=== PATIENT | female | born 1955 | race Hispanic/Latino ===

== ENCOUNTER 2019-05-06 23:48 | Emergency (ER) | payer OTHER ==
[2019-05-07] MEDS ORDERED: ONDANSETRON HCL 4 MG/2 ML VIAL ONE (00:53)
[2019-05-07] MEDS ORDERED: METOCLOPRAMIDE 10 MG/2 ML VIAL ONE (00:53)
[2019-05-07] MEDS ORDERED: FAMOTIDINE/PF 20 MG/2 ML VIAL IV ONE (00:54)
[2019-05-07 01:06] LABS: BASOPHILS % (AUTO) 0.4 % (0.0-5.0); EOSINOPHILS % (AUTO) 3.1 % (0.0-8.0); HEMATOCRIT 42.9 % (36-48); LYMPHOCYTES % (AUTO) 32.3 % (21.0-51.0); MEAN CORPUSCULAR HEMOGLOBIN 29.6 pg (27.0-33.0); MEAN CORPUSCULAR HGB CONC 32.9 g/dL (32.0-36.0); MEAN CORPUSCULAR VOLUME 89.9 fL (79-99); MONOCYTES % (AUTO) 9.3 % (3.0-13.0); NEUTROPHILS % (AUTO) 54.7 % (40.0-77.0); PLATELET COUNT (AUTO) 226 K/uL (130-400); RED BLOOD CELL COUNT(AUTO) 4.77 MIL/uL (4.00-5.50); RED CELL DISTRIBUTION WIDTH 12.6 % (11.0-15.5); WHITE BLOOD COUNT (AUTO) 8.5 K/uL (4.8-10.8)
[2019-05-07 01:08] LABS: APPEARANCE,URINE Clear (CLEAR); BILIRUBIN,URINE Negative (NEGATIVE); COLOR,URINE Yellow (YELLOW); GLUCOSE, URINE (UA) Negative (NEGATIVE); KETONES,URINE Negative (NEGATIVE); LEUKOCYTE ESTERASE ,URINE Trace (NEGATIVE); NITRATE,URINE Negative (NEGATIVE); OCCULT BLOOD,URINE Negative (NEGATIVE); PROTEIN,URINE Negative (NEGATIVE)
[2019-05-07 01:16] LABS: CARBON DIOXIDE 26 mmol/L (21-32); CHLORIDE 103 mmol/L (101-111); CREATININE 0.8 mg/dL (0.5-1.5); GLUCOSE,RANDOM 110 mg/dL (70-105); INR 0.9 (0.85-1.15); PARTIAL THROMBOPLASTIN TIME 29.6 SEC (26.3-35.5); PROTHROMBIN TIME 9.8 SEC (9.6-11.6); SODIUM SERUM 136 mmol/L (136-145); UREA NITROGEN, BLOOD 21 mg/dL (7-18)
[2019-05-07 01:17] LABS: BACTERIA,URINE Rare /HPF (None Seen); RBC,URINE 0-1 /HPF (0-1); WBC,URINE 0-1 /HPF (0-1)
[2019-05-07 01:18] LABS: SQUAMOUS EPITHELIAL CELL,UR 0-2 /HPF (0-2)
[2019-05-07 01:21] LABS: ALANINE AMINOTRANSFERASE 31 U/L (12-78); ALBUMIN 3.7 g/dL (3.5-5.0); ASPARTATE AMINOTRANSFERASE 29 U/L (10-37); BILIRUBIN,TOTAL 0.3 mg/dL (0.2-1.0); CREATINE KINASE, TOTAL 75 U/L (21-232); LIPASE 102 U/L (114-286); TOTAL PROTEIN, SERUM 7.9 g/dL (6.0-8.3)
== END 2019-05-07 02:23 | disposition home or self-care (01) ==
LOC: EDH 23:48
DX: K29.70 Gastritis, unspecified, without bleeding (principal); I10 Essential (primary) hypertension; Z90.49 Acquired absence of other specified parts of digestive tract; Z98.890 Other specified postprocedural states
CPT/HCPCS: 36415; 80053; 81001; 82550; 83690; 84484; 85025; 85610; 85730; 93005; 96361; 96374; 96375; 99284; J2405; J2765; J3490

== ENCOUNTER 2020-03-25 01:47 | Inpatient (IN) | payer OTHER, SELFPAY ==
[~2020-03-25] VITALS: Ht 162.6 cm; Wt 68.5 kg
[2020-03-25] MEDS ORDERED: ONDANSETRON HCL 4 MG/2 ML VIAL ONE (03:04)
[2020-03-25] MEDS ORDERED: HYDROMORPHONE HCL 0.5 MG/0.5 ML ML ONE (03:04)
[2020-03-25] MEDS ORDERED: SODIUM CHLORIDE 0.9% 1000ML 1,000 ML IV ONE ×2 (03:06→18:24)
[2020-03-25 03:30] LABS: APPEARANCE,URINE Clear (CLEAR); BILIRUBIN,URINE Negative (NEGATIVE); COLOR,URINE Yellow (YELLOW); GLUCOSE, URINE (UA) Negative (NEGATIVE); KETONES,URINE Trace mg/dL (NEGATIVE); LEUKOCYTE ESTERASE ,URINE Small (NEGATIVE); NITRATE,URINE Negative (NEGATIVE); OCCULT BLOOD,URINE Negative (NEGATIVE); PH,URINE 5.5 (5.0-8.0); PROTEIN,URINE Negative (NEGATIVE); UROBILINOGEN,URINE 0.2 mg/dL (0.2-1.0)
[2020-03-25 03:34] LABS: BASOPHILS % (AUTO) 0.5 % (0.0-5.0); EOSINOPHILS % (AUTO) 0.9 % (0.0-8.0); HEMATOCRIT 42.4 % (36-48); LYMPHOCYTES % (AUTO) 26.8 % (21.0-51.0); MEAN CORPUSCULAR HGB CONC 33.5 g/dL (32.0-36.0); MEAN CORPUSCULAR VOLUME 89.6 fL (79-99); MONOCYTES % (AUTO) 13.5 % (3.0-13.0); NEUTROPHILS % (AUTO) 58.1 % (40.0-77.0); PLATELET COUNT (AUTO) 256 K/uL (130-400); RED BLOOD CELL COUNT(AUTO) 4.73 MIL/uL (4.00-5.50); RED CELL DISTRIBUTION WIDTH 12.4 % (11.0-15.5); WHITE BLOOD COUNT (AUTO) 8.5 K/uL (4.8-10.8)
[2020-03-25 03:40] LABS: CREATININE 0.8 mg/dL (0.5-1.5); POTASSIUM 3.5 mmol/L (3.5-5.1)
[2020-03-25 03:43] LABS: BACTERIA,URINE None Seen /HPF (None Seen); RBC,URINE None Seen /HPF (0-1); SQUAMOUS EPITHELIAL CELL,UR Few /HPF (0-2); WBC,URINE 0-1 /HPF (0-1)
[2020-03-25 03:45] LABS: ALBUMIN 3.7 g/dL (3.5-5.0); BILIRUBIN,TOTAL 0.2 mg/dL (0.2-1.0); TOTAL PROTEIN, SERUM 7.3 g/dL (6.0-8.3)
[2020-03-25] MEDS ORDERED: PANTOPRAZOLE 40 MG/VIAL ONE (08:51)
[2020-03-25] MEDS ORDERED: IOHEXOL-350 75 ML VIAL IV ONE (10:37)
[2020-03-25] MEDS ORDERED: MORPHINE SULFATE 2 MG/ML 1ML SYG ONE (11:22)
[2020-03-25] MEDS ORDERED: METHYLPREDNISOLONE SOD SUCC 125MG/2ML VIAL ONE (11:22)
[2020-03-25] MEDS ORDERED: EPINEPHRINE 1 MG/ML AMPULE ONE (11:22)
[2020-03-25] MEDS ORDERED: DiphenhydrAMINE HCL 50 MG/ML VIAL ONE (11:32)
[2020-03-25] MEDS ORDERED: FAMOTIDINE/PF 20 MG/2 ML VIAL IV ONE (11:33)
[2020-03-25] MEDS ORDERED: ACETAMINOPHEN 325 MG TAB PO PRN ×2 (13:30)
[2020-03-25] MEDS ORDERED: ONDANSETRON HCL 4 MG/2 ML VIAL IV PRN (13:30)
[2020-03-25] MEDS: SODIUM CHLORIDE 0.9% 1000ML 1,000 ML IV SCH (18:00)
[2020-03-25] MEDS ORDERED: DiphenhydrAMINE HCL 50 MG/ML VIAL IV PRN (18:00)
[2020-03-25 19:12] LABS: HEMATOCRIT 39.6 % (36-48)
[2020-03-25] MEDS: METHYLPREDNISOLONE SOD SUCC 40MG/ML 1ML IVP SCH (21:00)
[2020-03-25] MEDS ORDERED: METHYLPREDNISOLONE SOD SUCC 40MG/ML 1ML ONE (21:17)
[2020-03-26] VITALS (7 sets, daily range): BP systolic 118–143; BP diastolic 66–79
[2020-03-26 00:36] LABS: HEMATOCRIT 41.5 % (36-48)
[2020-03-26] MEDS: METHYLPREDNISOLONE SOD SUCC 40MG/ML 1ML IVP SCH ×2 (10:15→21:08)
[2020-03-26] MEDS: PANTOPRAZOLE 40 MG/VIAL IVP SCH (10:15)
[2020-03-26 12:01] LABS: HEMATOCRIT 40.1 % (36-48)
[2020-03-26] MEDS: SODIUM CHLORIDE 0.9% 1000ML 1,000 ML IV SCH (18:30)
[2020-03-27 03:10] VITALS: BP 134/69
[2020-03-27 08:00] VITALS: BP 151/76
[2020-03-27] MEDS: PANTOPRAZOLE 40 MG/VIAL IVP SCH (09:59)
[2020-03-27] MEDS: SODIUM CHLORIDE 0.9% 1000ML 1,000 ML IV SCH ×2 (10:00→10:25)
[2020-03-27] MEDS ORDERED: PANT40TA55 PO (10:22)
[2020-03-27] MEDS ORDERED: METH4TAB3 PO (10:44)
[2020-03-27 12:26] VITALS: BP 155/66
[2020-03-27] MEDS ORDERED: FAMO20TA8 PO (14:15)
== END 2020-03-27 14:40 | disposition home or self-care (01) | DRG 378 ==
LOC: EDH 01:47 → EDHIP 01:48 → 3BH 03-26 00:06
PROVIDERS: ADMIT Family Medicine; ATTEND Family Medicine
DX: K92.2 Gastrointestinal hemorrhage, unspecified (principal); T88.6XXA Anaphylactic reaction due to adverse effect of correct drug or medicament properly administered, initial encounter; T50.8X5A Adverse effect of diagnostic agents, initial encounter; I10 Essential (primary) hypertension; Z90.49 Acquired absence of other specified parts of digestive tract
CPT/HCPCS: 36415; 74177; 80053; 81001; 82270; 83690; 84484; 85014; 85018; 85025; 93005; 97039; C9113; G0378; J0171; J1170; J1200; J2405; J2920; J2930; J3490; J7030; Q9967

== ENCOUNTER → 2022-06-23 | Outpatient (CLI) | payer OTHER ==
[~2022-06-23] MED LIST: METH4TAB3 PO; PANT40TA55 PO; REGADENOSON 0.4 MG/5 ML PF SYG IVP ONE
== END | disposition home or self-care (01) ==
LOC: SHCH 07:42
PROVIDERS: ATTEND Internal Medicine Cardiovascular Disease
DX: Z01.810 Encounter for preprocedural cardiovascular examination (principal); M25.561 Pain in right knee; M06.9 Rheumatoid arthritis, unspecified; I10 Essential (primary) hypertension; E11.9 Type 2 diabetes mellitus without complications; Z79.84 Long term (current) use of oral hypoglycemic drugs; Z79.899 Other long term (current) drug therapy
CPT/HCPCS: 78452; 96374; 93017; J2785; A9500 ×2

== ENCOUNTER → 2024-04-10 | Outpatient (CLI) | payer OTHER ==
[~2024-04-10] MED LIST changes: +AEC81 PO; +ATOR40TA69 PO; +CARV6.2579 PO; +DICL50TA7 PO; +LOSA-418 PO; +METF-444 PO; -REGADENOSON 0.4 MG/5 ML PF SYG IVP ONE
[2024-04-10 08:38] LABS: BASOPHILS # (AUTO) 0.06 K/uL (0.00-0.20); BASOPHILS % (AUTO) 0.5 % (0.0-5.0); EOSINOPHILS # (AUTO) 0.14 K/uL (0.00-0.70); EOSINOPHILS % (AUTO) 1.1 % (0.0-8.0); HEMATOCRIT 44.4 % (36-48); IMMATURE GRANULOCYTE ABSOLUTE 0.24 K/uL (0-1); LYMPHOCYTES # (AUTO) 3.3 K/uL (1.0-4.8); LYMPHOCYTES % (AUTO) 26.1 % (21.0-51.0); MEAN CORPUSCULAR HEMOGLOBIN 30.6 pg (27.0-33.0); MEAN CORPUSCULAR HGB CONC 31.8 g/dL (32.0-36.0); MEAN CORPUSCULAR VOLUME 96.3 fL (79-99); MONOCYTES % (AUTO) 7.8 % (3.0-13.0); NEUTROPHILS # (AUTO) 7.8 K/uL (1.8-7.7); NEUTROPHILS % (AUTO) 62.6 % (40.0-77.0); PLATELET COUNT (AUTO) 278 K/uL (130-400); RED BLOOD CELL COUNT(AUTO) 4.61 MIL/uL (4.00-5.50); RED CELL DISTRIBUTION WIDTH 14.3 % (11.0-15.5); WHITE BLOOD COUNT (AUTO) 12.4 K/uL (4.8-10.8)
[2024-04-10 08:50] LABS: CREATININE 0.7 mg/dL (0.5-1.0); POTASSIUM 4.3 mmol/L (3.5-5.1)
[2024-04-10 08:54] LABS: INR <= 0.93 (0.85-1.15); PROTHROMBIN TIME 9.7 SEC (9.6-11.6)
[2024-04-10 08:55] LABS: PARTIAL THROMBOPLASTIN TIME 27.6 SEC (26.3-35.5)
--- NOTE | 2024-04-10 16:37 | HMCIMG ---
CHEST 2VWS HISTORY: Preop COMPARISON: 09/10/2023 FINDINGS: Frontal and lateral projections of the chest were obtained. There is no acute pulmonary infiltrates or failure. The heart is not enlarged. Prominent interstitial markings are seen. Degenerative changes are seen of the thoracolumbar spine. IMPRESSION: 1. No acute pulmonary infiltrates.
== END | disposition home or self-care (01) ==
LOC: RAH 04-09 16:15
PROVIDERS: ATTEND Internal Medicine Cardiovascular Disease
DX: Z01.818 Encounter for other preprocedural examination (principal); M47.815 Spondylosis without myelopathy or radiculopathy, thoracolumbar region; Z79.01 Long term (current) use of anticoagulants
CPT/HCPCS: 36415; 71046; 80048; 85025; 85610; 85730

== ENCOUNTER → 2024-05-13 | Outpatient (CLI) | payer OTHER ==
[2024-05-13 11:25] LABS: BASOPHILS # (AUTO) 0.03 K/uL (0.00-0.20); BASOPHILS % (AUTO) 0.3 % (0.0-5.0); EOSINOPHILS # (AUTO) 0.11 K/uL (0.00-0.70); EOSINOPHILS % (AUTO) 1.1 % (0.0-8.0); HEMATOCRIT 40.3 % (36-48); IMMATURE GRANULOCYTE ABSOLUTE 0.08 K/uL (0-1); LYMPHOCYTES # (AUTO) 2.4 K/uL (1.0-4.8); LYMPHOCYTES % (AUTO) 23.1 % (21.0-51.0); MEAN CORPUSCULAR HGB CONC 32.3 g/dL (32.0-36.0); MEAN CORPUSCULAR VOLUME 96.2 fL (79-99); MONOCYTES # (AUTO) 0.9 K/uL (0.1-1.0); MONOCYTES % (AUTO) 8.2 % (3.0-13.0); NEUTROPHILS # (AUTO) 6.9 K/uL (1.8-7.7); NEUTROPHILS % (AUTO) 66.5 % (40.0-77.0); PLATELET COUNT (AUTO) 243 K/uL (130-400); RED BLOOD CELL COUNT(AUTO) 4.19 MIL/uL (4.00-5.50); RED CELL DISTRIBUTION WIDTH 13.8 % (11.0-15.5); WHITE BLOOD COUNT (AUTO) 10.4 K/uL (4.8-10.8)
[2024-05-13 11:38] LABS: ALBUMIN 3.5 g/dL (3.5-5.0); BILIRUBIN,TOTAL 0.3 mg/dL (0.2-1.0); CREATININE 0.6 mg/dL (0.5-1.0); POTASSIUM 3.9 mmol/L (3.5-5.1); TOTAL PROTEIN, SERUM 7.4 g/dL (6.0-8.3)
== END | disposition home or self-care (01) ==
LOC: LAB 10:29
PROVIDERS: ATTEND Nurse Practitioner Acute Care
DX: Z01.812 Encounter for preprocedural laboratory examination (principal); I10 Essential (primary) hypertension
CPT/HCPCS: 36415; 80053; 85025

== ENCOUNTER 2024-12-02 05:43 | Emergency (ER) | payer OTHER ==
[~2024-12-02] VITALS: Ht 162.6 cm; Wt 83.5 kg
--- NOTE | 2024-12-02 06:12 | ERN ---
General Chief Complaint: Abdominal Pain Stated Complaint: C/O ABD PAIN W/N X V, CONSTIPATION, LAST BM X 1 WK Time Seen by MD: 05:47 History of Present Illness Initial Comments 69-year-old female presents for generalized abdominal pain and difficulty stooling. Patient reports about a week ago she had episodes of diarrhea. She went to her primary doctor and was discharged with Zofran and ciprofloxacin for an unknown abdominal infection. Patient reports that since then she has been unable to stool. She feels bloated and inflamed in the abdomen. She reports some episodes of vomiting. She is able to pass gas, but has not had a stool in almost a week now. She reports feeling very constipated. No fevers or chills. No urinary symptoms. No history of bowel obstruction. Surgical history includes and cholecystectomy. Allergies: Coded Allergies: Iodinated Contrast Media (Unverified Allergy, Severe, 03/26/20) morphine (Unverified Allergy, Severe, SWELLING, 09/10/23) Per patient, face and neck swelling Home Meds Active Scripts Polyethylene Glycol 3350 (Miralax) 17 Gram Powd.pack, 17 GM PO DAILY for constipation, #20 PACKET 0 Refills Prov:KERLINE SIMPSON MD 12/02/24 Losartan Potassium (Cozaar) 50 Mg Tablet, 50 MG PO DAILY, #30 TAB 0 Refills Prov:TAMY DAVENPORT MD 09/12/23 Carvedilol (Coreg) 6.25 Mg Tablet, 6.25 MG PO BID, #60 TAB 0 Refills Prov:TAMY DAVENPORT MD 09/12/23 Atorvastatin Calcium (LIPITOR) 40 Mg Tablet, 40 MG PO HS, #30 TAB 0 Refills Prov:TAMY DAVENPORT MD 09/12/23 Aspirin (ASPIRIN 81 MG ECTAB) 81 Mg Ectab, 81 MG PO DAILY, #30 TAB.EC 0 Refills Prov:TAMY DAVENPORT MD 09/12/23 Methylprednisolone (Medrol) 4 Mg Tab.ds.pk, 4 MG PO AD for 6 Days, MG Prov:DONAL MARQUEZ AGACNP 03/27/20 Pantoprazole Sodium (Protonix) 40 Mg Ectab, 40 MG PO DAILY for 30 Days, #30 TAB.EC 0 Refills Prov:DONAL MARQUEZ AGACNP 03/27/20 Reported Medications Metformin HCl (Metformin HCl) 500 Mg Tablet, 500 MG PO HS, TAB 09/10/23 Diclofenac Potassium (Diclofenac Potassium) 50 Mg Tablet, 50 MG PO AD PRN for PAIN, TAB 09/10/23 Past Medical History Past Medical History: Diabetes-Type II, Hypertension, Other Medical History Other: PSORIASIS Past Surgical History: Cholecystectomy, ROS Dictation CONSTITUTIONAL: No chills, no fever, no weakness, no diaphoresis, no malaise. HEAD/FACE: No signs of trauma. EENT: No eye pain, no blurred vision, no tearing, no double vision, no ear pain, no ear discharge, no nose pain, no nasal congestion, no throat pain, no throat swelling, no mouth pain. RESPIRATORY: No cough, no orthopnea, no SOB, no stridor, no wheezing. CARDIOVASCULAR: No chest pain, no edema, no palpitations, no syncope. GASTROINTESTINAL/ABDOMINAL: Generalized abdominal pain, constipation GENITOURINARY: No abnormal discharge, no dysuria, no frequent urination, no hematuria. No complaints of pain in the genitals. MUSCULOSKELETAL: No back pain, no gout, no joint pain, no joint swelling, no muscle pain, no muscle stiffness, no neck pain. INTEGUMENTARY: No change in color, no change in hair/nails, no dryness, no lesion, no lumps, no rash. NEUROLOGICAL/PSYCH: No anxiety, not depressed, no emotional problem, no headache, no numbness, no pre-existing deficit, no history of seizures, no tremors, no weakness. HEMATOLOGIC/LYMPHATIC: Not anemic, no history of blood clots, no apparent bleeding, no bruising, glands not swollen. All Systems Negative, Except as Noted. Physical Exam Physical Exam Dictation VITAL SIGNS: Reviewed. GENERAL APPEARANCE: Alert, oriented x3, no acute distress, obese. HEAD AND FACE: Non-traumatic. EYES: PERRL, pink conjunctivas, eyelid no trauma, anterior chamber clear. EARS: Pinnas intact and no signs of trauma or erythema. Ear canals clear and no discharge. TMs no erythema. NOSE: No discharge, no bleeding. OROPHARYNX: Mouth normal, teeth no caries, tongue pink. Pharynx clear, no erythema. Tonsils no exudates, no abscesses noted. Mucous membrane moist. NECK: Supple, non-tender, no thyromegaly, no masses, no JVD, no bruits. BREAST: Deferred. CHEST: No tenderness, no crepitus, no paradoxical movement, no retractions. LUNGS: Clear, well-ventilated, symmetric, no rales, no wheezing, no rhonchi, no stridor, good breath sounds bilaterally. HEART: Regular rate, regular rhythm, no murmur, no gallops. VASCULAR: No peripheral edema. ABDOMEN: Soft, positive bowel sounds, nondistended, no guarding, nontender, no rebound, no masses no hepatomegaly, no splenomegaly, no Gusman's sign, no h ernias. RECTAL: Deferred. GENITAL: Deferred. NEUROLOGICAL: Normal speech, gross motor function intact, gross sensory functi on intact. MUSCULOSKELETAL: Neck nontender, full range of motion, back nontender, full range of motion. EXTREMITIES: Nontender, full range of motion. SKIN: Color pink, dry, no turgor, no rash, no lacerations, no abrasions, no contusions. LYMPHATICS: Deferred. Results Laboratory and Microbiology Lab and Micro Result Laboratory Tests Test 12/02/24 06:17 White Blood Count 11.3 K/uL (4.8-10.8) H Red Blood Count 4.18 MIL/uL (4.00-5.50) Hemoglobin 13.0 g/dL (12.0-16.0) Hematocrit 39.0 % (36-48) Mean Corpuscular Volume 93.3 fL (79-99) Mean Corpuscular Hemoglobin 31.1 pg (27.0-33.0) Mean Corpuscular Hemoglobin Concent 33.3 g/dL (32.0-36.0) Red Cell Distribution Width 15.2 % (11.0-15.5) Platelet Count 359 K/uL (130-400) Mean Platelet Volume 9.7 fL (7.5-10.5) Immature Granulocyte % (Auto) 0.9 % (0-1) Neutrophils (%) (Auto) 79.8 % (40.0-77.0) H Lymphocytes (%) (Auto) 12.9 % (21.0-51.0) L Monocytes (%) (Auto) 5.6 % (3.0-13.0) Eosinophils (%) (Auto) 0.6 % (0.0-8.0) Basophils (%) (Auto) 0.2 % (0.0-5.0) Neutrophils # (Auto) 9.1 K/uL (1.8-7.7) H Lymphocytes # (Auto) 1.5 K/uL (1.0-4.8) Monocytes # (Auto) 0.6 K/uL (0.1-1.0) Eosinophils # (Auto) 0.07 K/uL (0.00-0.70) Basophils # (Auto) 0.02 K/uL (0.00-0.20) Absolute Immature Granulocyte (auto 0.10 K/uL (0-1) Nucleated Red Blood Cells 0.0 % (0.0-0.19) Sodium Level 146 mmol/L (136-145) H Potassium Level 3.6 mmol/L (3.5-5.1) Chloride Level 104 mmol/L (101-111) Carbon Dioxide Level 30 mmol/L (21-32) Blood Urea Nitrogen 25 mg/dL (7-18) H Creatinine 0.8 mg/dL (0.5-1.0) Glomerular Filtration Rate Calc 81 mL/min (>90) Random Glucose 127 mg/dL (70-105) H Lactic Acid Level 1.4 mmol/L (0.8-2.5) Total Calcium 9.4 mg/dL (8.5-10.1) Total Bilirubin 0.3 mg/dL (0.2-1.0) Direct Bilirubin 0.1 mg/dL (0.0-0.3) Aspartate Amino Transf (AST/SGOT) 15 U/L (10-37) Alanine Aminotransferase (ALT/SGPT) 24 U/L (12-78) Alkaline Phosphatase 63 U/L (50-136) Total Creatine Kinase 44 U/L (21-232) # Total Protein 7.2 g/dL (6.0-8.3) Albumin 3.6 g/dL (3.5-5.0) Lipase 20 U/L (16-77) MDM MDM: Differential diagnosis: Rationale: Tests considered and ordered secondary to shared decision making include: Previous outside records reviewed: Old ER visits. Risk of complication and/or morbidity or mortality of patient management: None Medications-Per medication reconciliation Need for hospitalization: Patient does not meet criteria for hospitalization. Need for emergency major/minor surgery: No There are no social concerns with this patient. Prescription drug management Prescriptions will include symptomatic care Patient's prior external medical records from other ER visits were reviewed by me as indicated. Prior testing and results from previous visits were reviewed. Prior tests were taken into account with medical decision making and resource utilization, independent historian/historians were used to obtain complete med ical history. I independently interpreted the test that were performed, results were reviewed by me and considered findings on radiology if ordered. Medical management and examination interpretation discussions were had by me with other qualified healthcare professionals as indicated for the patient's care. 69-year-old female presenting to the emergency department with the abdominal pain stable exam negative CT scan, constipation, prescriptions given ED Course Orders Procedure Category Date Status Time Cbc With Differential LAB 12/02/24 Complete 06:01 Lactated Ringers PHA 12/02/24 Complete 1000ml (Lactated 06:30 Creatine Kinase, Total LAB 12/02/24 Complete 06:01 Ct Abdomen/Pelvis W/O CT 12/02/24 Resulted Contrast 06:01 Lipase LAB 12/02/24 Complete 06:01 Basic Metabolic Panel LAB 12/02/24 Complete 06:01 Lactic Acid LAB 12/02/24 Complete 06:01 Hepatic Function Panel LAB 12/02/24 Complete 06:01 Ketorolac PHA 12/02/24 Complete Tromethamine 15mg/Ml 06:30 Polyethylene Glycol PHA 12/02/24 Complete 3350 (Miralax 3350 1 07:00 Enema Instructions CPOE 12/02/24 Transmitted 06:48 Ondansetron 4mg Inj PHA 12/02/24 Complete (Zofran 4mg Inj) 07:49 Ondansetron 4mg Inj PHA 12/02/24 Complete (Zofran 4mg Inj) 08:00 Current Medications Medications (Trade) Dose Ordered Sig/Gregory Route PRN Reason Start Time Stop Time Status Last Admin Dose Admin Ketorolac Tromethamine (toRADol) 15 mg ONCE ONCE IV 12/02/24 06:30 12/02/24 06:32 DC 12/02/24 07:01 Lactated Ringer's 1,000 ml @ 0 mls/hr ONCE ONCE IV 12/02/24 06:30 12/02/24 06:31 DC 12/02/24 06:29 Ondansetron HCl (zoFRAN 4MG INJ) 4 mg ONCE ONCE IVP 12/02/24 08:00 12/02/24 08:01 DC 12/02/24 08:12 Ondansetron HCl (zoFRAN 4MG INJ) 4 mg STK-MED ONCE .ROUTE 12/02/24 07:49 12/02/24 07:49 DC Polyethylene Glycol (MIRalax 3350 17 GM POWD.PACK) 17 gm ONCE ONCE PO 12/02/24 07:00 12/02/24 07:05 DC 12/02/24 07:46 Vital Signs Date Time Temp Pulse Resp B/P (MAP) Pulse Ox O2 Delivery O2 Flow Rate FiO2 12/02/24 08:06 98.6 80 18 164/79 98 Room Air* 0 21 12/02/24 06:32 98.6 87 18 187/85 98 Room Air* 0 21 12/02/24 05:45 98.2 82 20 189/87 98 Room Air DX & DISP Disposition: Discharge Departure Impression: Primary Impression: Abdominal pain Additional Impression: Constipation Condition: Stable Scripts Polyethylene Glycol 3350 (Miralax) 17 Gram Powd.pack 17 GM PO DAILY for constipation, #20 PACKET 0 Refills Prov: KERLINE SIMPSON MD 12/02/24 Referrals: FLACO LOVELACE MD (PCP) LYNN TELLEZ DO Dec 02, 2024 06:12 KERLINE SIMPSON MD Dec 02, 2024 08:14
[2024-12-02 06:26] LABS: IMMATURE GRANULOCYTE ABSOLUTE 0.10 K/uL (0-1); NUCLEATED RED BLOOD CELLS 0.0 % (0.0-0.19); PLATELET COUNT (AUTO) 359 K/uL (130-400); RED BLOOD CELL COUNT(AUTO) 4.18 MIL/uL (4.00-5.50); RED CELL DISTRIBUTION WIDTH 15.2 % (11.0-15.5); WHITE BLOOD COUNT (AUTO) 11.3 K/uL (4.8-10.8)
[2024-12-02] MEDS: LACTATED RINGERS 1000ML 1,000 ML IV ONE (06:29)
[2024-12-02 06:36] LABS: CREATININE 0.8 mg/dL (0.5-1.0); GLOMERULAR FILTR. RATE CALC 81.0 mL/min (>90); GLUCOSE,RANDOM 127.0 mg/dL (70-105); SODIUM SERUM 146.0 mmol/L (136-145); UREA NITROGEN, BLOOD 25.0 mg/dL (7-18)
[2024-12-02 06:40] LABS: ASPARTATE AMINOTRANSFERASE 15.0 U/L (10-37); CREATINE KINASE, TOTAL 44.0 U/L (21-232); TOTAL PROTEIN, SERUM 7.2 g/dL (6.0-8.3)
--- NOTE | 2024-12-02 07:18 | HMCIMG ---
EXAM: CT Abdomen and Pelvis Without IV contrast CLINICAL HISTORY: obstruction vs constipation TECHNIQUE: Axial computed tomography images of the abdomen and pelvis without intravenous contrast. CONTRAST: No IV contrast. COMPARISON: None provided. FINDINGS: LUNG BASES: Bibasilar atelectasis.No pleural effusions are seen. LIVER: Liver is enlarged and measures 17.7 cm in the craniocaudal span. GALLBLADDER AND BILE DUCTS: The gallbladder is surgically absent. No biliary ductal dilatation is evident. PANCREAS: Unremarkable. SPLEEN: Unremarkable. ADRENAL GLANDS: Unremarkable. KIDNEYS, URETERS, AND BLADDER: The kidneys appear within normal limits. There is no hydronephrosis or hydroureter. No urinary calculi are seen. STOMACH AND BOWEL: Unremarkable appearance of the stomach and bowel. No evidence of bowel obstruction. No evidence suggesting enteritis or colitis. Large amount of stool throughout the colon, consistent with constipation. APPENDIX: No evidence of acute appendicitis on CT examination. PERITONEUM: No free fluid. No free air. LYMPH NODES: No lymphadenopathy is evident. REPRODUCTIVE: Unremarkable as visualized. VASCULATURE: No evidence of abdominal aortic aneurysm. Atherosclerotic calcifications in the abdominal aorta. BONES: No aggressive appearing osseous lesion. No acute osseous pathology evident. IMPRESSION: No bowel obstruction or inflammation. Constipation. No renal or ureteral stones. No hydronephrosis. Hepatomegaly. /[place]
[2024-12-02 08:06] VITALS: BP 164/79; PULSE 80; RESP 18; TEMP 98.6; O2SAT 98
[2024-12-02] MEDS ORDERED: POLY17PO4 PO (08:13)
== END 2024-12-02 08:27 | disposition home or self-care (01) ==
LOC: EDH 05:43
DX: K59.00 Constipation, unspecified (principal); E11.9 Type 2 diabetes mellitus without complications; I10 Essential (primary) hypertension; L40.9 Psoriasis, unspecified; Z88.5 Allergy status to narcotic agent; Z91.041 Radiographic dye allergy status; Z79.899 Other long term (current) drug therapy; Z79.82 Long term (current) use of aspirin; Z90.49 Acquired absence of other specified parts of digestive tract
CPT/HCPCS: 99285; 74176; 96374; 96361; 96375; 82550; 80076; 80048; 83690; 85025; 83605; 36415; J1885; J2405

== ENCOUNTER 2024-12-17 18:19 | Emergency (ER) | payer OTHER ==
[~2024-12-17] VITALS: Ht 162.6 cm; Wt 81.6 kg
[~2024-12-17 18:19] MED LIST changes: +POLY17PO4 PO
[2024-12-17 18:23] VITALS: BP 132/76; PULSE 90; RESP 18; TEMP 97.2
--- NOTE | 2024-12-17 18:37 | ERN ---
ED Note History of Present Illness Stated Complaint: FALL Chief Complaint: Mechanical Fall Time Seen by MD: 18:25 Time Seen by Midlevel: 18:25 Dictation: The patient is a 69-year-old female with history of hypertension, diabetes, C- section who presents to the emergency department with complaints of right ankle pain and left knee pain after she twisted her right ankle causing her to fall to her left knee onset 10:45 a.m. this morning. Patient denies any head trauma, denies any neck pain, denies any back pain or abdominal pain. Denies any other injuries from the fall. Allergies: Coded Allergies: Iodinated Contrast Media (Unverified Allergy, Severe, 03/26/20) Home Meds Active Scripts Polyethylene Glycol 3350 (Miralax) 17 Gram Powd.pack, 17 GM PO DAILY for constipation, #20 PACKET 0 Refills Prov:KERLINE SIMPSON MD 12/02/24 Losartan Potassium (Cozaar) 50 Mg Tablet, 50 MG PO DAILY, #30 TAB 0 Refills Prov:TAMY DAVENPORT MD 09/12/23 Carvedilol (Coreg) 6.25 Mg Tablet, 6.25 MG PO BID, #60 TAB 0 Refills Prov:TAMY DAVENPORT MD 09/12/23 Atorvastatin Calcium (LIPITOR) 40 Mg Tablet, 40 MG PO HS, #30 TAB 0 Refills Prov:TAMY DAVENPORT MD 09/12/23 Aspirin (ASPIRIN 81 MG ECTAB) 81 Mg Ectab, 81 MG PO DAILY, #30 TAB.EC 0 Refills Prov:TAMY DAVENPORT MD 09/12/23 Methylprednisolone (Medrol) 4 Mg Tab.ds.pk, 4 MG PO AD for 6 Days, MG Prov:DONAL MARQUEZ AGACNP 03/27/20 Pantoprazole Sodium (Protonix) 40 Mg Ectab, 40 MG PO DAILY for 30 Days, #30 TAB.EC 0 Refills Prov:DONAL MARQUEZ AGACNP 03/27/20 Reported Medications Metformin HCl (Metformin HCl) 500 Mg Tablet, 500 MG PO HS, TAB 09/10/23 Diclofenac Potassium (Diclofenac Potassium) 50 Mg Tablet, 50 MG PO AD PRN for PAIN, TAB 09/10/23 Past Medical History Past Medical History: Diabetes-Type II, Hypertension Additional Past Medical Hx: PSORIASIS Surgical History: Cholecystectomy, Other, Surgical History Other: RT KNEE SX RN Note Reviewed/Agreed w/PFSH: Yes Review of System Dictation Constitutional: Negative for fever,chills, and weight loss Eyes: Negative for injury, pain,redness, and discharge ENT: Negative for injury,pain or swelling Cardiovascular: Negative for chest pain, palpitations, and edema Respiratory: Negative for shortness of breath, cough, and wheezing, Abdomen/GI: Negative for abdominal pain, nausea, vomiting, diarrhea, and constipation Back: Negative for injury and pain : Negative for injury, bleeding and discharge MS/Extremity: Positive for left knee pain, right ankle pain Skin: Negative for rash, and discoloration Neuro: Negative for headache, weakness, numbness, tingling, and seizure Psych: Negative for suicide ideation, homicidal ideation, and hallucinations Initial Vital Sign VS Vital Signs Date Time Temp Pulse Resp B/P (MAP) Pulse Ox O2 Delivery O2 Flow Rate FiO2 12/17/24 18:23 97.2 90 18 132/76 99 0 Physical Exam Dictation Vital Signs reviewed General Appearance: Alert, oriented x 3, no acute distress, well developed, nourished. Head and Face: non-traumatic. Eyes: PERRL, pink conjunctivas, eyelid no trauma, anterior chamber with arcus senilis. Ears: Pinnas intact and no signs of trauma or erythema ear canals clear and no discharge TM no erythema Nose: No discharge, no bleeding. Oropharynx: Mouth normal, tongue pink. pharynx clear,no erythema, tonsils no exudates, no abscesses noted, mucous membrane moist Neck: Supple, non-tender, no thyromegaly, no masses, no JVD, no bruits Breast:Deferred Chest:No tenderness, no crepitus, no paradoxical movement, no retractions Lungs:Clear, well-ventilated, symmetric, no rales, no wheezing, no rhonchi, no stridor, good breath sounds bilaterally Heart: Regular rate, regular rhythm, no murmur, no gallops Vascular: no peripheral edema, dorsalis pedis 3+ bilaterally Abdomen: Soft, positive bowel sounds, nondistended, no guarding, nontender, no rebound, no masses no hepatomegaly, no splenomegaly, no Gusman's sign, no hernias. Rectal: Deferred Genital: Deferred Neurological: Normal speech, motor function intact, sensory function intact Musculoskeletal: Neck nontender, full range of motion, back nontender, full range of motion, Extremities: nontender, full range of motion , swelling noted to right ankle, limited range of motion due to pain, no open wounds, mild swelling to left knee, full range of motion Skin: Color pink, dry, no turgor, no rash, no lacerations, no abrasions, no contusions. Lymphatic: Deferred Results (Laboratory/Radiology) Laboratory/Radiology ORDERING PHYSICIAN: JAYLEEN FLOYD DEPUTY BAILIFF PROCEDURE: KNEE 3V LT - KNEE 3VWS LT EXAM: CR left Knee, 3 views. CLINICAL HISTORY: Fall/injury. COMPARISON: None provided. FINDINGS: Mild osteopenia. Severe degenerative changes in the lateral tibiofemoral joint compartment and moderate degenerative changes in the medial tibiofemoral and patellofemoral joint compartments. Moderate suprapatellar knee joint effusion. Soft tissue edema around the knee joint is more prominent on the medial aspect. No acute fracture or aggressive appearing osseous lesion. IMPRESSION: No acute osseous abnormality. Mild osteopenia. Severe degenerative changes in the lateral tibiofemoral joint compartment and moderate degenerative changes in the medial tibiofemoral and patellofemoral joint compartments. Moderate suprapatellar knee joint effusion. Soft tissue edema around the knee joint is more prominent on the medial aspect. /[place] REASON: fall, injury ORDERING PHYSICIAN: JAYLEEN FLOYD DEPUTY BAILIFF PROCEDURE: [id number] - ANKLE COMP 3VWS RT EXAM: CR right Ankle, 3 views. CLINICAL HISTORY: Fall/injury. COMPARISON: None provided. FINDINGS: Mild soft tissue edema around the ankle joint, more prominent over the lateral malleolus. Prominent plantar calcaneal spur. Mild degenerative changes in the tibiotalar, talofibular, and intertarsal joints. No acute fracture or aggressive appearing osseous lesion. No radiographic evidence of joint effusion. IMPRESSION: No acute osseous abnormality.Mild soft tissue edema around the ankle joint, more prominent over the lateral malleolus. Prominent plantar calcaneal spur. Mild degenerative changes in the tibiotalar, talofibular, and intertarsal joints. /[place] Labs Reviewed?: Yes ED Course ED Course Orders Procedure Category Date Status Time Ankle Comp 3vws Rt RAD 12/17/24 Resulted 18:33 Knee 3vws Lt RAD 12/17/24 Resulted 18:33 Ketorolac PHA 12/17/24 Complete Tromethamine 30mg/Ml 19:00 Apply Ice Pack To: CPOE 12/17/24 Transmitted (Er) 18:37 Apply Hugh Wrap (Er) CPOE 12/17/24 Transmitted 21:20 Crutches W/Training CPOE 12/17/24 Transmitted (Er) 21:20 Current Medications Medications (Trade) Dose Ordered Sig/Gregory Route PRN Reason Start Time Stop Time Status Last Admin Dose Admin Ketorolac Tromethamine (toRADol) 30 mg ONCE ONCE IM 12/17/24 19:00 12/17/24 19:01 DC 12/17/24 20:12 Vital Signs Date Time Temp Pulse Resp B/P (MAP) Pulse Ox O2 Delivery O2 Flow Rate FiO2 12/17/24 18:23 97.2 90 18 132/76 99 0 Medical Decision Making MDM The patient is a 69-year-old female with history of hypertension, diabetes, C- section who presents to the emergency department with complaints of right ankle pain and left knee pain after she twisted her right ankle causing her to fall to her left knee onset 10:45 a.m. this morning. Patient denies any head trauma, denies any neck pain, denies any back pain or abdominal pain. Denies any other injuries from the fall. X-ray showed no acute fractures some tissue swelling. Patient otherwise in no acute distress, nontoxic appearance, continues neurovascularly intact. Patient will be discharged to follow up with PCP and ortho. Differential diagnosis: Ankle sprain, ankle fracture, knee sprain Need for hospitalization: Patient does not meet criteria for hospitalization. There are no social concerns with this patient. DX & DISP Disposition: Discharge Departure Impression: Primary Impression: Right ankle sprain Additional Impression: Contusion of left knee Condition: Stable Additional Instructions: Your x-ray did not show any fractures. There is some swelling. You can continue icing and elevating it at home. Follow up with your primary doctor and follow up with ortho. Anything worsens please return to ER. Rest avoid activities that cause pain. Ice- apply cold pack, bag of ice, or bag of frozen vegetables on your extremity every 1-2 hours for 15 minutes each time. Put a thin towel between the ice and your skin. Use the ice for at least 6 hours after your injury. Compression - you want to have your extremity under slight pressure by having it wrapped in an elastic bandage. This helps reduce swelling and supports the injured extremity. Elevation - keep your extremity raised above the level of your heart. To do this you can put some foot on some pillows or blankets while laying down on the table or chair where sitting down. FOLLOW-UP WITH PRIMARY CARE PROVIDER IN 1 TO 2 DAYS. TAKE MEDICATIONS DIRECTED HERE IN THE EMERGENCY ROOM. OKAY TO CONTINUE HOME MEDICATIONS UNLESS OTHERWISE DISCUSSED DURING YOUR VISIT IN THE EMERGENCY ROOM TODAY. RETURN TO YOUR NEAREST EMERGENCY ROOM IF SYMPTOMS WORSEN OR IF THERE IS NO IMPROVEMENT. CALL 911 IF YOU NEED IMMEDIATE ASSISTANCE. TAKE TYLENOL [id number] NEEDED AND IF NO CONTRAINDICATIONS ARE PRESENT. INCREASE ORAL HYDRATION. A WOUND CULTURE OR URINE CULTURE WAS ORDERED HERE IN THE EMERGENCY ROOM DEPARTMENT PLEASE FOLLOW-UP WITH PRIMARY CARE PROVIDER AND ADVISE THEM TO GET REPEAT PORTS FROM OUR FACILITY. IF YOU HAD ANY HUGH WRAP/SPLINTS THAT WERE APPLIED HERE, PLEASE DO NOT REMOVE THEM UNTIL YOU SEE YOUR PRIMARY CARE OR SPECIALTY. Referrals: JURGEN RITTER MD (PCP) ROSE MARIE WRIGHT DO Time of Disposition: 21:34 I have reviewed the case, and I agree with, Diagnosis and Plan JAYLEEN FLOYD [facility] Dec 17, 2024 18:37
--- NOTE | 2024-12-17 21:28 | HMCIMG ---
EXAM: CR right Ankle, 3 views. CLINICAL HISTORY: Fall/injury. COMPARISON: None provided. FINDINGS: Mild soft tissue edema around the ankle joint, more prominent over the lateral malleolus. Prominent plantar calcaneal spur. Mild degenerative changes in the tibiotalar, talofibular, and intertarsal joints. No acute fracture or aggressive appearing osseous lesion. No radiographic evidence of joint effusion. IMPRESSION: No acute osseous abnormality.Mild soft tissue edema around the ankle joint, more prominent over the lateral malleolus. Prominent plantar calcaneal spur. Mild degenerative changes in the tibiotalar, talofibular, and intertarsal joints. /[place]
--- NOTE | 2024-12-17 21:30 | HMCIMG ---
EXAM: CR left Knee, 3 views. CLINICAL HISTORY: Fall/injury. COMPARISON: None provided. FINDINGS: Mild osteopenia. Severe degenerative changes in the lateral tibiofemoral joint compartment and moderate degenerative changes in the medial tibiofemoral and patellofemoral joint compartments. Moderate suprapatellar knee joint effusion. Soft tissue edema around the knee joint is more prominent on the medial aspect. No acute fracture or aggressive appearing osseous lesion. IMPRESSION: No acute osseous abnormality. Mild osteopenia. Severe degenerative changes in the lateral tibiofemoral joint compartment and moderate degenerative changes in the medial tibiofemoral and patellofemoral joint compartments. Moderate suprapatellar knee joint effusion. Soft tissue edema around the knee joint is more prominent on the medial aspect. /[place]
== END 2024-12-17 21:43 | disposition home or self-care (01) ==
LOC: EDH 18:19
DX: S93.401A Sprain of unspecified ligament of right ankle, initial encounter (principal); S80.02XA Contusion of left knee, initial encounter; E11.9 Type 2 diabetes mellitus without complications; I10 Essential (primary) hypertension; L40.9 Psoriasis, unspecified; Z91.041 Radiographic dye allergy status; Z79.899 Other long term (current) drug therapy; Z79.82 Long term (current) use of aspirin; Z90.49 Acquired absence of other specified parts of digestive tract; Z98.890 Other specified postprocedural states; W01.0XXA Fall on same level from slipping, tripping and stumbling without subsequent striking against object, initial encounter; Y93.89 Activity, other specified; Y92.89 Other specified places as the place of occurrence of the external cause; Y99.8 Other external cause status
CPT/HCPCS: 99284; 73562; 73610; 96372; J1885

== ENCOUNTER 2025-01-13 21:26 | Emergency (ER) | payer OTHER ==
[~2025-01-13] VITALS: Ht 162.6 cm; Wt 80.7 kg
[2025-01-13 22:02] LABS: IMMATURE GRANULOCYTE ABSOLUTE 0.02 K/uL (0-1); NUCLEATED RED BLOOD CELLS 0.0 % (0.0-0.19); PLATELET COUNT (AUTO) 266 K/uL (130-400); RED BLOOD CELL COUNT(AUTO) 4.51 MIL/uL (4.00-5.50); RED CELL DISTRIBUTION WIDTH 14.1 % (11.0-15.5); WHITE BLOOD COUNT (AUTO) 6.1 K/uL (4.8-10.8)
[2025-01-13 22:19] LABS: ASPARTATE AMINOTRANSFERASE 30.0 U/L (10-37); CREATININE 0.9 mg/dL (0.5-1.0); GLOMERULAR FILTR. RATE CALC 70.0 mL/min (>90); SODIUM SERUM 134.0 mmol/L (136-145); TOTAL PROTEIN, SERUM 7.9 g/dL (6.0-8.3); UREA NITROGEN, BLOOD 28.0 mg/dL (7-18)
[2025-01-13 22:20] LABS: GLUCOSE,RANDOM 45.0 mg/dL (70-105)
[2025-01-13 22:36] LABS: APPEARANCE,URINE CLEAR (CLEAR); GLUCOSE, URINE (UA) NEGATIVE (NEGATIVE); LEUKOCYTE ESTERASE ,URINE NEGATIVE Leu/uL (NEGATIVE); NITRATE,URINE NEGATIVE (NEGATIVE); OCCULT BLOOD,URINE NEGATIVE (NEGATIVE)
[2025-01-13] MEDS: DEXTROSE 50%-WATER 50 ML DISP.SYRIN IV ONE ×2 (22:36)
[2025-01-13] MEDS: 0.9% NACL 500ML IV.SOLN 500 ML IV ONE (22:40)
[2025-01-13 22:44] LABS: ADD UA MICROSCOPIC NO
[2025-01-13 23:01] LABS: SARS-CoV-2, RNA, NAAT NEGATIVE SARS CoV-2 (NEGATIVE)
[2025-01-13 23:07] LABS: INFLUENZA TYPE A Negative For Type A (NEGATIVE); INFLUENZA TYPE B Negative For Type B (NEGATIVE)
--- NOTE | 2025-01-13 23:40 | HMCIMG ---
EXAM: CR Chest, 1 view CLINICAL HISTORY: Shortness of breath. COMPARISON: None provided. FINDINGS: The lungs show no infiltrates or other acute findings. Hyperinflated lungs, likely mild COPD. No pleural effusion or pneumothorax. The cardiomediastinal silhouette is within normal limits. No acute osseous abnormality. IMPRESSION: No acute cardiopulmonary process is evident. Mild COPD. /[place]
[2025-01-14] MEDS: 0.9% NACL 500ML IV.SOLN 500 ML IV ONE (00:03)
[2025-01-14 00:34] VITALS: PULSE 71; RESP 19
--- NOTE | 2025-01-14 01:14 | ERN ---
General Chief Complaint: Weakness Stated Complaint: C/O WEAKNESS, DIARRHEA Time Seen by MD: 21:28 Time Seen by Midlevel: 21:28 Source: patient History of Present Illness Initial Comments Patient is a 69-year-old female with a past medical history of diabetes and hypertension presenting to the emergency department for evaluation of generalized body weakness Allergies: Coded Allergies: Iodinated Contrast Media (Unverified Allergy, Severe, 03/26/20) Home Meds Active Scripts Azithromycin (Azithromycin) 250 Mg Tablet, 1 TAB PO AD for 5 Days, #6 TAB 0 Refills 2 the first day followed by 1 for days 2-5 Prov:NANCY MEDINA PAC 01/14/25 Methylprednisolone (Medrol) 4 Mg Tab.ds.pk, 1 TAB PO AD for 6 Days, #21 TAB 0 Refills 6 on day 1 then reduce by one tablet daily until gone Prov:NANCY MEDINA [facility] 01/14/25 Polyethylene Glycol 3350 (Miralax) 17 Gram Powd.pack, 17 GM PO DAILY for constipation, #20 PACKET 0 Refills Prov:KERLINE SIMPSON MD 12/02/24 Losartan Potassium (Cozaar) 50 Mg Tablet, 50 MG PO DAILY, #30 TAB 0 Refills Prov:TAMY DAVENPORT MD 09/12/23 Carvedilol (Coreg) 6.25 Mg Tablet, 6.25 MG PO BID, #60 TAB 0 Refills Prov:TAMY DAVENPORT MD 09/12/23 Atorvastatin Calcium (LIPITOR) 40 Mg Tablet, 40 MG PO HS, #30 TAB 0 Refills Prov:TAMY DAVENPORT MD 09/12/23 Aspirin (ASPIRIN 81 MG ECTAB) 81 Mg Ectab, 81 MG PO DAILY, #30 TAB.EC 0 Refills Prov:TAMY DAVENPORT MD 09/12/23 Methylprednisolone (Medrol) 4 Mg Tab.ds.pk, 4 MG PO AD for 6 Days, MG Prov:DONAL MARQUEZ AGACNP 03/27/20 Pantoprazole Sodium (Protonix) 40 Mg Ectab, 40 MG PO DAILY for 30 Days, #30 TAB.EC 0 Refills Prov:DONAL MARQUEZ AGACNP 03/27/20 Reported Medications Metformin HCl (Metformin HCl) 500 Mg Tablet, 500 MG PO HS, TAB 09/10/23 Diclofenac Potassium (Diclofenac Potassium) 50 Mg Tablet, 50 MG PO AD PRN for PAIN, TAB 09/10/23 Past Medical History Past Medical History: Diabetes-Type II, Hypertension Medical History Other: PSORIASIS Past Surgical History: Cholecystectomy, Surgical History Other: RT KNEE SX ROS Dictation CONSTITUTIONAL: Negative except for HPI HEAD/FACE: Negative except for HPI EENT: Negative except for HPI RESPIRATORY: Negative except for HPI GASTROINTESTINAL/ABDOMINAL: Negative except for HPI GENITOURINARY: Negative except for HPI MUSCULOSKELETAL: Negative except for HPI INTEGUMENTARY: Negative except for HPI NEUROLOGICAL/PSYCH: Negative except for HPI HEMATOLOGIC/LYMPHATIC: Negative except for HPI All Systems Negative, Except as noted above. 13 point review of systems assessed and all negative except for above. Physical Exam Physical Exam Dictation Vital Signs reviewed General Appearance: Alert, oriented x 3, no acute distress, well developed, nourished. Head and Face: non-traumatic. Eyes: PERRL, pink conjunctivas, eyelid no trauma, anterior chamber with arcus senilis. Ears: Pinnas intact and no signs of trauma or erythema ear canals clear and no discharge TM no erythema Nose: No discharge, no bleeding. Oropharynx: Mouth normal, tongue pink, pharynx clear,no erythema, tonsils no exudates, no abscesses noted, mucous membrane moist Neck: Supple, non-tender, no thyromegaly, no masses, no JVD, no bruits Breast:Deferred Chest:No tenderness, no crepitus, no paradoxical movement, no retractions Lungs:Clear, well-ventilated, symmetric, no rales, no wheezing, no rhonchi, no stridor, good breath sounds bilaterally Heart: Regular rate, regular rhythm, no murmur, no gallops Vascular: no peripheral edema, Abdomen: Soft, positive bowel sounds, nondistended, no guarding, nontender, no rebound, no masses no hepatomegaly, no splenomegaly, no Gusman's sign, no hernias. Rectal: Deferred Genital: Deferred Neurological: Normal speech, motor function intact, sensory function intact Musculoskeletal: Neck nontender, full range of motion, back nontender, full range of motion, Extremities: nontender, full range of motion Skin: Color pink, dry, no turgor, no rash, no lacerations, no abrasions, no contusions. Lymphatic: Deferred Results Laboratory and Microbiology Lab and Micro Result Laboratory Tests Test 01/13/25 21:56 01/13/25 22:09 01/13/25 22:28 01/13/25 22:43 White Blood Count 6.1 K/uL (4.8-10.8) Red Blood Count 4.51 MIL/uL (4.00-5.50) Hemoglobin 13.9 g/dL (12.0-16.0) Hematocrit 43.4 % (36-48) Mean Corpuscular Volume 96.2 fL (79-99) Mean Corpuscular Hemoglobin 30.8 pg (27.0-33.0) Mean Corpuscular Hemoglobin Concent 32.0 g/dL (32.0-36.0) Red Cell Distribution Width 14.1 % (11.0-15.5) Platelet Count 266 K/uL (130-400) Mean Platelet Volume 10.7 fL (7.5-10.5) H Immature Granulocyte % (Auto) 0.3 % (0-1) Neutrophils (%) (Auto) 46.8 % (40.0-77.0) Lymphocytes (%) (Auto) 39.7 % (21.0-51.0) Monocytes (%) (Auto) 12.6 % (3.0-13.0) Eosinophils (%) (Auto) 0.3 % (0.0-8.0) Basophils (%) (Auto) 0.3 % (0.0-5.0) Neutrophils # (Auto) 2.9 K/uL (1.8-7.7) Lymphocytes # (Auto) 2.4 K/uL (1.0-4.8) Monocytes # (Auto) 0.8 K/uL (0.1-1.0) Eosinophils # (Auto) 0.02 K/uL (0.00-0.70) Basophils # (Auto) 0.02 K/uL (0.00-0.20) Absolute Immature Granulocyte (auto 0.02 K/uL (0-1) Nucleated Red Blood Cells 0.0 % (0.0-0.19) Sodium Level 134 mmol/L (136-145) L Potassium Level 3.9 mmol/L (3.5-5.1) Chloride Level 99 mmol/L (101-111) L Carbon Dioxide Level 26 mmol/L (21-32) Blood Urea Nitrogen 28 mg/dL (7-18) H Creatinine 0.9 mg/dL (0.5-1.0) Glomerular Filtration Rate Calc 70 mL/min (>90) Random Glucose 45 mg/dL (70-105) *L Lactic Acid Level 2.0 mmol/L (0.8-2.5) Total Calcium 9.4 mg/dL (8.5-10.1) Magnesium Level 2.00 mg/dL (1.80-2.40) Total Bilirubin 0.1 mg/dL (0.2-1.0) L Aspartate Amino Transf (AST/SGOT) 30 U/L (10-37) Alanine Aminotransferase (ALT/SGPT) 38 U/L (12-78) Alkaline Phosphatase 82 U/L (50-136) Total Creatine Kinase 148 U/L (21-232) # Troponin I High Sensitivity 20 ng/L (4-50) B-Type Natriuretic Peptide < 5 pg/mL (0-100) Total Protein 7.9 g/dL (6.0-8.3) Albumin 3.6 g/dL (3.5-5.0) Lipase 44 U/L (16-77) Urine Color LIGHT-YELLOW (YELLOW) Urine Appearance CLEAR (CLEAR) Urine pH 5.5 (5.0-8.0) Urine Specific [place] 1.020 (1.001-1.031) Urine Protein NEGATIVE mg/dL (NEGATIVE) Urine Glucose (UA) NEGATIVE mg/dL (NEGATIVE) Urine Ketones NEGATIVE mg/dL (NEGATIVE) Urine Occult Blood NEGATIVE (NEGATIVE) Urine Nitrate NEGATIVE (NEGATIVE) Urine Bilirubin NEGATIVE mg/dL (NEGATIVE) Urine Urobilinogen 0.2 mg/dL (0.2-1.0) Urine Leukocyte Esterase NEGATIVE [place]/uL Whole Blood Glucose 39 MG/DL (70-110) *L Bedside Glucose Comment Notified Nurse Influenza Type A Antigen Negative For Type A Influenza Type B Antigen Negative For Type B SARS-CoV-2, RNA, NAAT NEGATIVE SARS CoV-2 Group A Streptococcus Rapid negative (NEGATIVE) Test 01/13/25 23:03 01/14/25 01:55 01/14/25 02:30 Whole Blood Glucose 125 MG/DL (70-110) #H 88 MG/DL (70-110) 86 MG/DL (70-110) Labs Reviewed?: Yes MDM MDM: Differential diagnosis: Dehydration, electrolyte abnormality, There are no social concerns with this patient. Prescription drug management Prescriptions will include: Azithromycin and Medrol pack Medical management and examination interpretation discussions were had by me with other qualified healthcare professionals as indicated for the patient's care. ED Course Orders Procedure Category Date Status Time 12 Lead Ekg Tracing- EKG 01/13/25 Resulted Technical 21:33 Cbc With Differential LAB 01/13/25 Complete 21:43 Comprehensive LAB 01/13/25 Complete Metabolic Panel 21:43 Lactic Acid LAB 01/13/25 Complete 21:43 Lipase LAB 01/13/25 Complete 21:43 Magnesium LAB 01/13/25 Complete 21:43 Urinalysis Profile LAB 01/13/25 Complete 21:43 Troponin I High LAB 01/13/25 Complete Sensitivity 22:14 Chest 1vw RAD 01/13/25 Resulted 22:14 0.9% Nacl 500ml PHA 01/13/25 Complete Iv.Soln (Ns 500ml 22:30 Covid Rna Naat LAB 01/13/25 Complete 22:14 Influenza Type A & B, LAB 01/13/25 Complete Rapid 22:14 B-Type Natriuretic LAB 01/13/25 Complete Peptide 22:14 Creatine Kinase, Total LAB 01/13/25 Complete 22:14 Dextrose 50%-Water PHA 01/13/25 Complete (D50w) 22:30 Dextrose 50%-Water PHA 01/13/25 Complete (D50w) 22:26 Rapid (Group A Strep) LAB 01/13/25 Complete 22:37 0.9% Nacl 500ml PHA 01/13/25 Complete Iv.Soln (Ns 500ml 23:30 Ipratropium/Albuterol PHA 01/14/25 Complete Neb (Duoneb) 00:00 Methylprednisolone PHA 01/14/25 Complete Succ 125mg (Solu-Medr 00:30 Methylprednisolone PHA 01/14/25 Complete Succ 125mg (Solu-Medr 00:28 Current Medications Medications (Trade) Dose Ordered Sig/Gregory Route PRN Reason Start Time Stop Time Status Last Admin Dose Admin Albuterol (DUOneb) 1 UDVIAL ONCE ONCE IH 01/14/25 00:00 01/14/25 00:02 DC 01/14/25 00:34 Dextrose (D50w) 50 ml ONCE ONCE IV 01/13/25 22:30 01/13/25 22:31 DC 01/13/25 22:36 Dextrose (D50w) 50 ml STK-MED ONCE IV 01/13/25 22:26 01/13/25 22:26 DC Methylprednisolone Sodium Succinate (Solu-medROL 125MG) 125 mg ONCE ONCE IVP 01/14/25 00:30 01/14/25 00:36 DC 01/14/25 01:42 Methylprednisolone Sodium Succinate (Solu-medROL 125MG) 125 mg STK-MED ONCE .ROUTE 01/14/25 00:28 01/14/25 00:28 DC Sodium Chloride 500 ml @ 0 mls/hr ONCE ONCE IV 01/13/25 22:30 01/13/25 22:31 DC 01/13/25 22:40 Sodium Chloride 500 ml @ 0 mls/hr ONCE ONCE IV 01/13/25 23:30 01/13/25 23:31 DC 01/14/25 00:03 Vital Signs Date Time Temp Pulse Resp B/P (MAP) Pulse Ox O2 Delivery O2 Flow Rate FiO2 01/14/25 02:44 98.2 74 18 136/52 97 Room Air* 0 21 01/14/25 00:34 71 19 01/14/25 00:34 97.9 82 18 137/49 98 Room Air* 0 21 01/13/25 22:38 84 24 124/48 99 Room Air* 0 21 01/13/25 21:29 98.4 83 20 181/81 97 Room Air DX & DISP Disposition: Discharge Departure Impression: Primary Impression: Hypoglycemia Additional Impressions: COPD exacerbation, Mild dehydration Condition: Stable Scripts Azithromycin (Azithromycin) 250 Mg Tablet 1 TAB PO AD for 5 Days, #6 TAB 0 Refills 2 the first day followed by 1 for days 2-5 Prov: NANCY MEDINA PAC 01/14/25 Methylprednisolone (Medrol) 4 Mg Tab.ds.pk 1 TAB PO AD for 6 Days, #21 TAB 0 Refills 6 on day 1 then reduce by one tablet daily until gone Prov: NANCY MEDINA PAC 01/14/25 Referrals: JURGEN RITTER MD (PCP) I have reviewed the case, and I agree with, Diagnosis and Plan I performed the substantive portion of the visit. I have reviewed and personally made and approve the management plan that is documented in the note by myself or the ELISABET. I acknowledge for responsibility for the patient's management plan. NANCY MEDINA PAC Jan 14, 2025 01:14
--- NOTE | 2025-01-14 02:34 | NUR ---
MIDLEVEL CAROL KINGSTON MADE AWARE OF BLOOD SUGAR, PER MIDELEVEL PATIENT CLEARED FOR DISCHARGE
[2025-01-14 02:44] VITALS: BP 136/52; PULSE 74; RESP 18; TEMP 98.2; O2SAT 97
--- NOTE | 2025-01-14 07:06 | EKG ---
[facility] Test Date: 2025-01-13 Test Time: 21:26:09 Pat Name: VENITA BOWEN Department: ED Room: Gender: F Tower Technician: [id number] : 1955 Requested By: GT TO Order Number: [id number] Reading MD: Shanon Gupta Measurements Intervals [place] Rate: 81 P: -7 [place]: 153 QRS: -12 QRSD: 97 T: -6 QT: 385 QTc: 446 Interpretive Statements Sinus rhythm Probable anterior infarct, age indeterminate Compared to ECG 09/10/2023 00:02:01 Myocardial infarct finding now present T-wave abnormality no longer present Possible ischemia no longer present Electronically Signed On 01-14-2025 10:06:31 FITTER HELPER by Shanon Gupta Please click the below link to view image of tracing.
== END 2025-01-14 02:50 | disposition home or self-care (01) ==
LOC: EDH 21:26
DX: E11.649 Type 2 diabetes mellitus with hypoglycemia without coma (principal); J44.1 Chronic obstructive pulmonary disease with (acute) exacerbation; E86.0 Dehydration; I10 Essential (primary) hypertension; L40.9 Psoriasis, unspecified; Z79.899 Other long term (current) drug therapy; Z91.041 Radiographic dye allergy status; Z90.49 Acquired absence of other specified parts of digestive tract; Z98.890 Other specified postprocedural states; Z20.822 Contact with and (suspected) exposure to COVID-19
CPT/HCPCS: 99285; 96365; 71045; 87635; 82550; 83735; 84484; 80053; 83880; 83690; 85025; 87880; 87804 ×2; 82948 ×4; 83605; 81003; 36415; 93005; 96375; 94640; J7040 ×2; J7070; J2919